=== PATIENT | female | born 1985 | race Caucasian/White ===

== ENCOUNTER 2018-12-30 21:04 | Emergency (ER) | payer SELFPAY ==
[~2018-12-30] VITALS: Ht 170.2 cm; Wt 100.0 kg
[2018-12-31] MEDS ORDERED: SODIUM CHLORIDE 0.9% 1,000 ML IV ONE (03:39)
[2018-12-31] MEDS ORDERED: ONDANSETRON HCL 4MG/2ML INJ IV STA (03:39)
[2018-12-31] MEDS ORDERED: MECLIZINE 25MG TABLET PO ONE (03:45)
[2018-12-31 04:00] LABS: BASOPHILS % 0.8 % (0.0-2.0); EOSINOPHILS % 4.3 % (0.0-5.0); HEMATOCRIT. 37.9 % (36.0-48.0); LYMPHOCYTES % 35.1 % (20.0-50.0); MEAN CORPUSCULAR HEMOGLOBIN 30.7 pg (28.0-32.0); MEAN CORPUSCULAR VOLUME 89.4 fL (81.0-99.0); MEAN PLATELET VOLUME 8.3 fl (7.4-10.4); MONOCYTES % 8.2 % (2.0-8.0); NEUTROPHILS % 51.6 % (40.0-76.0); PLATELET 286 x1000/uL (130-400); RED BLOOD CELL COUNT 4.24 mill/uL (4.2-5.4)
[2018-12-31 04:07] LABS: CHLORIDE 106 mEq/L (98-107)
[2018-12-31 04:08] LABS: CLARITY URINE CLEAR (CLEAR); COLOR URINE YELLOW (YELLOW); KETONES URINE NEGATIVE (NEGATIVE); LEUKOCYTE ESTERASE URINE 2+ (NEGATIVE); NITRITE URINE NEGATIVE (NEGATIVE); OCCULT BLOOD URINE NEGATIVE (NEGATIVE); PROTEIN URINE NEGATIVE (NEGATIVE); SPECIFIC GRAVITY URINE 1.016 (1.005-1.030); UROBILINOGEN URINE 0.2 E.U./dL (0.2-1.0)
[2018-12-31 04:44] VITALS: BP 120/66
== END 2018-12-31 05:32 | disposition home or self-care (01) ==
LOC: ER 21:04
DX: N39.0 Urinary tract infection, site not specified (principal); R42 Dizziness and giddiness
CPT/HCPCS: 36415; 80053; 81003; 81025; 85025; 93005; 96361; 96374; 99283; J2405; J7030; J8597; Z7610

== ENCOUNTER 2022-10-11 22:17 | Emergency (ER) | payer SELFPAY ==
[~2022-10-11] VITALS: Ht 170.2 cm; Wt 102.0 kg
[2022-10-12] MEDS ORDERED: IBUP-2029 MT (00:47)
[2022-10-12 01:19] VITALS: BP 131/86
== END 2022-10-12 01:22 | disposition home or self-care (01) ==
LOC: ER 22:17
DX: M79.671 Pain in right foot (principal)
CPT/HCPCS: 73630; 99283

== ENCOUNTER 2022-10-18 01:10 | Emergency (ER) | payer MEDICAID ==
[~2022-10-18] VITALS: Ht 170.2 cm; Wt 100.0 kg
[~2022-10-18 01:10] MED LIST: IBUP-2029 MT
[2022-10-18 01:58] VITALS: BP 138/79
[2022-10-18] MEDS ORDERED: T3 PO (05:13)
== END 2022-10-18 05:35 | disposition home or self-care (01) ==
LOC: ER 01:25
DX: M72.2 Plantar fascial fibromatosis (principal); J45.909 Unspecified asthma, uncomplicated; Z98.890 Other specified postprocedural states
CPT/HCPCS: 81025; 99282; Z7610

== ENCOUNTER 2023-06-03 21:39 | Emergency (ER) | payer MEDICAID ==
[~2023-06-03] VITALS: Ht 170.2 cm; Wt 112.4 kg
[~2023-06-03 21:39] MED LIST changes: +T3 PO
[2023-06-03 21:56] VITALS: BP 116/69; O2SAT 99
[2023-06-04] MEDS ORDERED: LIDOCAINE HCL/PF 1% 10 MG/ML 5ML VIAL INFIL ONE (02:30)
[2023-06-04] MEDS ORDERED: BACITRACIN ZINC OINT UDPKT TOP ONE (02:30)
[2023-06-04 03:50] VITALS: PULSE 85; RESP 18; TEMP 98.1
== END 2023-06-04 03:40 | disposition home or self-care (01) ==
LOC: ER 21:39
DX: S01.81XA Laceration without foreign body of other part of head, initial encounter (principal); X58.XXXA Exposure to other specified factors, initial encounter; Y93.89 Activity, other specified; Y92.89 Other specified places as the place of occurrence of the external cause; Y99.8 Other external cause status
CPT/HCPCS: 81025; 12013; 99282; Z7610

== ENCOUNTER 2023-12-18 19:37 | Emergency (ER) | payer MEDICAID ==
[~2023-12-18] VITALS: Ht 170.2 cm; Wt 103.0 kg
[2023-12-18 20:00] VITALS: O2SAT 96
[2023-12-18 20:47] LABS: CLARITY URINE CLOUDY (CLEAR); COLOR URINE YELLOW (YELLOW); GLUCOSE URINE NEGATIVE (NEGATIVE); KETONES URINE TRACE (NEGATIVE); LEUKOCYTE ESTERASE URINE NEGATIVE (NEGATIVE); NITRITE URINE NEGATIVE (NEGATIVE); OCCULT BLOOD URINE 3+ (NEGATIVE); PROTEIN URINE 1+ (NEGATIVE); SPECIFIC GRAVITY URINE 1.034 (1.005-1.030)
[2023-12-18 20:56] LABS: BASOPHILS % 0.5 % (0.0-2.0); EOSINOPHILS % 3.6 % (0.0-5.0); HEMATOCRIT. 37.7 % (36.0-48.0); HEMOGLOBIN. 12.7 g/dL (12.0-16.0); LYMPHOCYTES % 34.6 % (20.0-50.0); MEAN CORPUSCULAR HEMOGLOBIN 29.7 pg (28.0-32.0); MEAN CORPUSCULAR HGB CONC 33.6 g/dL (31.0-37.0); MEAN CORPUSCULAR VOLUME 88.4 fL (81.0-99.0); MEAN PLATELET VOLUME 8.4 fl (7.4-10.4); MONOCYTES % 7.6 % (2.0-8.0); NEUTROPHILS % 53.7 % (40.0-76.0); PLATELET 325 x1000/uL (130-400); RED BLOOD CELL COUNT 4.26 mill/uL (4.2-5.4); RED CELL DISTRIBUTION WIDTH 12.9 % (11.6-14.6); WHITE BLOOD COUNT 7.2 x1000/uL (4.5-11.0)
[2023-12-18 21:10] LABS: ALANINE AMINOTRANSFERASE 29 IU/L (10-49); ALBUMIN 4.1 g/dL (3.2-4.8); ASPARTATE AMINOTRANSFERASE 26 IU/L (<34); BILIRUBIN TOTAL 0.3 mg/dL (0.1-1.0); CALCIUM 8.8 mg/dL (8.7-10.4); CARBON DIOXIDE 29 mEq/L (21-32); CHLORIDE 106 mEq/L (98-107); CREATININE 0.7 mg/dL (0.6-1.0); GLUCOSE 125 mg/dL (70-105); POTASSIUM 3.9 mEq/L (3.5-5.1); PROTEIN TOTAL 7.3 g/dL (6.0-8.3); SODIUM 141 mEq/L (136-145); UREA NITROGEN BLOOD 10 mg/dL (9-23)
[2023-12-18 21:14] LABS: TROPONIN I HIGH SENSITIVITY < 4 ng/L (3.0-34)
[2023-12-18 21:15] LABS: BACTERIA URINE 2+; RBC URINE 25-50 /hpf (0-2); SQUAMOUS EPITHELIAL CELL URINE 3+ /lpf (RARE/1+)
[2023-12-19] MEDS ORDERED: METO-293 MT (02:07)
[2023-12-19] MEDS ORDERED: IBUP-2029 MT (02:07)
[2023-12-19] MEDS: METOCLOPRAMIDE HCL 10MG TABLET PO ONE (02:22)
[2023-12-19] MEDS: KETOROLAC 60MG/2ML VIAL IM ONE (02:22)
[2023-12-19] MEDS: DEXAMETHASONE 10 MG/ML VIAL IM ONE (02:22)
[2023-12-19 02:58] VITALS: BP 137/87; PULSE 81; RESP 18; TEMP 98.1
== END 2023-12-19 03:47 | disposition home or self-care (01) ==
LOC: ER 19:37
DX: G43.909 Migraine, unspecified, not intractable, without status migrainosus (principal); I10 Essential (primary) hypertension; J45.909 Unspecified asthma, uncomplicated; Z98.890 Other specified postprocedural states; Z79.899 Other long term (current) drug therapy
CPT/HCPCS: 99284; 80053; 81003; 81025; 83690; 85025; 84484; 36415; 93005; 96372; J8597; J1100; J1885